=== PATIENT | female | born 1955 | race African-American/Black ===

== ENCOUNTER → 2017-06-08 | Outpatient (CLI) | payer BC ==
[~2017-06-08] MED LIST: AMIT10TA PO; BENZ100C15 PO; GADOBUTROL 7.5 MMOL/7.5 ML VIAL IV ONE; VERA240C2 PO
--- NOTE | 2017-06-08 09:37 | KCIC ---
EXAM: Brain MRI with and without contrast. HISTORY: Headache. TECHNIQUE: Multiplanar, multisequence magnetic resonance imaging of the brain was performed prior to and following the administration of 4 cc Gadavist intravenous contrast. COMPARISON: None. FINDINGS: There is no restricted diffusion to suggest acute or subacute infarction. There is no susceptibility effect to suggest hemorrhage. There is no mass effect or midline shift. There is no hydrocephalus. There are few scattered foci of T2/FLAIR hyperintensity within the cerebral white matter, a nonspecific finding. The orbits are unremarkable. The paranasal sinuses and mastoid air cells are unremarkable. There are normal flow voids within the cerebral vessels. No suspicious enhancing lesion is seen. IMPRESSION: 1. No acute intracranial finding. 2. Few scattered foci of signal change within the cerebral white matter, a nonspecific finding likely due to chronic small vessel disease. Electronically signed by: Nan Morrell MD (06/08/2017 9:34 AM) [facility]
== END | disposition home or self-care (01) ==
LOC: KCIC MRI 08:13
PROVIDERS: ATTEND Family Medicine
DX: R51 Headache (principal); R90.82 White matter disease, unspecified
CPT/HCPCS: 70553; A9585

== ENCOUNTER → 2020-08-22 | Outpatient (CLI) | payer BC ==
[~2020-08-22] MED LIST changes: +BENZ-8 PO; -BENZ100C15 PO; -GADOBUTROL 7.5 MMOL/7.5 ML VIAL IV ONE
--- NOTE | 2020-08-26 10:16 | CARD ---
MR#: [id number] Date of Study: 08/22/2020 Ordering Physician: KARINA HAYES, Referring Physician: KARINA HAYES, Tech: Selena Li APPROVED REPORT EXAM: Two-dimensional and M-mode echocardiogram with Doppler and color Doppler. Other Information Quality : AverageHR: 81bpm INDICATION COPD Dyspnea RISK FACTORS Hypertension 2D DIMENSIONS RVDd2.5 (2.9-3.5cm)Left Atrium(2D)1.8 (1.6-4.0cm) IVSd0.8 (0.7-1.1cm)Aortic Root(2D)2.8 (2.0-3.7cm) LVDd3.9 (3.9-5.9cm)LVOT Diameter2.0 (1.8-2.4cm) PWd0.8 (0.7-1.1cm)LVDs2.6 (2.5-4.0cm) FS (%) 33.2 %SV40.8 ml Aortic Valve AoV Peak Adriano.105.8cm/sAoV VTI17.8cm AO Peak GR.4.5mmHgLVOT Peak Adriano.68.1cm/s LVOT VTI 13.72cmAO Mean GR.2mmHg LE (VMAX)1.39gr7LYP (VTI)2.42cm2 Mitral Valve MV E Pobyeijk68.2cm/sMV DECEL [id number] MV A Reyoheju86.4cm/sMV E Mean Gr.1mmHg MV EVA30etA/A Ratio0.9 MVA (PHT)2.79cm2 TDI E/Lateral E'9.2E/Medial E'9.7 Pulmonary Valve PV Peak Evhyrqka67.7cm/sPV Peak Grad.3mmHg Tricuspid Valve TR P. Hdnvkooo350tx/sRAP [id number] TR Peak Gr.86prOxXRAV17ypIw Pulmonary Vein S1 Sfgkytkz71.6cm/sD2 Ckgrkhsk90.9cm/s PVa [id number] LEFT VENTRICLE The left ventricle is normal size. There is normal left ventricular wall thickness. The left ventricu lar systolic function is normal and the ejection fraction is within normal range. The Ejection Fracti on is 50-55%. Septal motion consistent with conduction abnormality. Transmitral Doppler flow pattern is Grade I-abnormal relaxation pattern. RIGHT VENTRICLE The right ventricle is borderline dilated. There is normal right ventricular wall thickness. The righ t ventricular systolic function is normal. ATRIA The left atrium size is normal. The right atrium size is normal. The interatrial septum is intact wit h no evidence for an atrial septal defect or patent foramen ovale as noted on 2-D or Doppler imaging. AORTIC VALVE The aortic valve is normal in structure and function. Doppler and Color Flow revealed no significant aortic regurgitation. Calculated aortic valve area is 2.61 cm2 with maximum pressure gradient of 5 mm Hg and mean pressure gradient of 3 mmHg. There is no significant aortic valvular stenosis. MITRAL VALVE The mitral valve is normal in structure and function. There is no evidence of mitral valve prolapse. There is no mitral valve stenosis. Doppler and Color-flow revealed trace mitral regurgitation. TRICUSPID VALVE The tricuspid valve is normal in structure and function. Doppler and Color Flow revealed trace tricus pid regurgitation with an estimated PAP of 31 mmHg. There is no tricuspid valve stenosis. PULMONIC VALVE The pulmonic valve is not well visualized. Doppler and Color Flow revealed no pulmonic valvular regur gitation. GREAT VESSELS The aortic root is normal in size. The IVC is normal in size and collapses >50% with inspiration. PERICARDIAL EFFUSION There is no evidence of significant pericardial effusion. Critical Notification Critical Value: No <Conclusion> The left ventricle is normal size. The left ventricular systolic function is normal and the ejection fraction is within normal range. The Ejection Fraction is 50-55%. Doppler and Color Flow revealed no significant aortic regurgitation. Calculated aortic valve area is 2.61 cm2 with maximum pressure gradient of 5 mmHg and mean pressure g radient of 3 mmHg. There is no significant aortic valvular stenosis. Doppler and Color-flow revealed trace mitral regurgitation. Doppler and Color Flow revealed trace tricuspid regurgitation with an estimated PAP of 31 mmHg. Signed by : Dylan Sunshine MD Electronically Approved : 08/22/2020 17:48:17
== END ==
LOC: ECHO 10:49
PROVIDERS: ATTEND Internal Medicine Pulmonary Disease
DX: I51.7 Cardiomegaly (principal); J44.9 Chronic obstructive pulmonary disease, unspecified
CPT/HCPCS: 93306

== ENCOUNTER → 2021-01-02 | Outpatient (CLI) | payer BC ==
--- NOTE | 2021-01-02 12:26 | RAD ---
EXAM: Dual modality PET-CT Scan DATE: 01/02/2021 RADIOPHARMACEUTICAL: 15.67 mCi F-18 fluorodeoxyglucose (FDG) IV. CLINICAL HISTORY: Pulmonary nodule. COMPARISON: There are no comparison images available. TECHNIQUE: Approximately 45 minutes after tracer administration, routine, attenuation-corrected Posit kimberly Emission Tomography (PET) images were obtained from the level of the base of the skull through th e level of the mid thighs. Tomographic reconstructions are reviewed in coronal, transaxial and sagitt al planes. Non-contrast CT imaging was performed for attenuation correction and localization purpose s only. These images do not constitute a diagnostic-quality CT examination and were not used to diag nose disease independently of the PET images. The blood glucose level was 102 mg/dL at the time of FDG administration. *One or more of the following individualized dose reduction techniques were utilized for this examina tion: 1. Automated exposure control. 2. Adjustment of the mA and/or kV according to patient size. 3. Use of iterative reconstruction technique. FINDINGS: There is no abnormal greater tracer activity to suggest malignancy. Specifically, there is no significant retained tracer activity above the blood pool associated with a subcentimeter right up per lobe pulmonary nodule. There is physiologic muscular activity at the base of the neck and there i s systolic activity within the bowel and renal collecting system. There is also physiologic activity within the liver and osseous structures. The CT portion of the exam demonstrates a irregular nodule within the right upper lobe measuring 7 mm . There is a former nodule within the superior segment of the right lower lobe, with adjacent nonspec ific subcentimeter groundglass opacities. There is additional groundglass opacity within the left lob e likely due to parenchymal scarring. There are multiple calcified nodules consistent with healed gra nulomatous disease. There is pulmonary emphysema. There is no pneumothorax or pleural effusion. There is basilar atelectasis. The heart is normal in size. The aorta is normal in caliber. No pathologically enlarged lymph node is seen. There is calcified plaque involving the carotid bifurcations and aorta and aortic branch vesse ls. There is a small incidental lipoma within the right breast. There is a small cyst within the infe rior right hepatic lobe. The collar, pancreas, spleen, adrenal glands and kidneys are unremarkable, w ith evaluation limited due to motion. There is moderate colonic stool. There is no evidence of bowel obstruction. The bladder is distended. There is a 10 mm partially calcified structure within the left hemipelvis, benign in appearance. There are degenerative changes throughout the spine. The visualize d portions the brain are unremarkable. IMPRESSION: 1. No abnormal radiotracer activity to suggest malignancy. 2. 7 mm nodule within the right upper lobe. This may be beyond the inferior limits in size for charac terization with PET. There is also a 4 mm nodule within the right lower lobe and there are a few tiny groundglass opacities which are too small to characterize with PET. Continued short-term follow-up i s recommended. 3. Emphysema and healed granulomatous disease. 4. Please refer to the above report for additional findings regarding the non-PET portion of the exam . Electronically signed by: Nan Morrell MD (01/02/2021 12:23 PM) [id number]
== END ==
LOC: PETSC 14:48
PROVIDERS: ATTEND Family Medicine
DX: J43.9 Emphysema, unspecified (principal); R91.1 Solitary pulmonary nodule; K76.89 Other specified diseases of liver
CPT/HCPCS: 78815; A9552

== ENCOUNTER → 2021-09-07 | Outpatient (CLI) | payer BC ==
--- NOTE | 2021-09-07 10:38 | RAD ---
EXAM: Chest CT without intravenous contrast. HISTORY: Pulmonary nodules. TECHNIQUE: Computed tomographic images of the chest were obtained without contrast. Multiplanar refor matting was performed. *One or more of the following individualized dose reduction techniques were utilized for this examina tion: 1. Automated exposure control. 2. Adjustment of the mA and/or kV according to patient size. 3. Use of iterative reconstruction technique. COMPARISON: 12/26/2020. FINDINGS: There is a 1.0 cm spiculated nodule within the right upper lobe (series 8, image 69). There is a 8 mm irregular nodule containing coarse calcification within the left upper lobe (series 8, chintan ge 47). This likely due to healed granulomatous disease. There are similar appearing predominantly ca lcified nodules abutting the pleura of the right upper lobe measuring 7 mm (series 8, image 134) and 8 mm within the medial right upper lobe (series 8, image 155). There are few additional scattered betsy cified granulomas within both lungs. There is emphysema. There is no infiltrate, pleural effusion or pneumothorax. There is right greater than left lower lobe predominant bronchial wall thickening. There are uncleared secretions or mucous plugs within right lower lobe bronchi. There is posterior dependent and basilar atelectasis. The heart is normal in size. The aorta is normal in caliber. There is no lymphadenopathy. There is no acute finding involving the upper abdomen. There is no suspicious osseous lesion. IMPRESSION: 1. Stable 1.0 cm spiculated nodule within the right upper lobe. The interval stability and absence of significant abnormal radiotracer activity associated with this nodule on a prior PET/CT favors katey verma. However, the lesion remains suspicious based on morphology. Continued follow-up is recommended in 6 months. 2. Multiple predominantly calcified pulmonary nodules due to healed granulomatous disease. 3. Emphysema. 4. Right lower lobe predominant bronchial wall thickening due to bronchitis. There are uncleared secr etions or mucous plugs within the right lower lobe bronchi. Electronically signed by: Nan Morrell MD (09/07/2021 10:36 AM) [id number]
== END ==
LOC: CT 09:59
PROVIDERS: ATTEND Internal Medicine Pulmonary Disease
DX: J92.9 Pleural plaque without asbestos (principal); J43.9 Emphysema, unspecified; J84.10 Pulmonary fibrosis, unspecified; R91.1 Solitary pulmonary nodule
CPT/HCPCS: 71250